=== PATIENT | female | born 1950 | race Caucasian/White ===

== ENCOUNTER 2022-11-19 10:57 | Outpatient (CLI) | payer MEDICARE | END 2022-11-19 10:58 | disposition home or self-care (01) | LOC: CSHRAD 10:57 | PROVIDERS: ATTEND Internal Medicine Rheumatology | DX: M80.88XA Other osteoporosis with current pathological fracture, vertebra(e), initial encounter for fracture (principal) | CPT/HCPCS: 72070 ==